=== PATIENT | male | born 1995 | race African-American/Black ===

== ENCOUNTER 2022-11-18 18:44 | Emergency (ER) | payer SELFPAY ==
[~2022-11-18] VITALS: Ht 195.6 cm; Wt 104.5 kg
[2022-11-18] MEDS ORDERED: SODIUM CHLORIDE 0.9% 1,000 ML IVB ONE (20:30)
[2022-11-18 21:26] LABS: Urine Bacteria NONE SEEN /hpf (None Seen); Urine Blood Negative /uL (Negative); Urine Specific Gravity 1.021 (1.001-1.035); Urine WBC 4 /hpf (0 - 3)
[2022-11-18 21:27] LABS: Basophils # (auto) 0 10 ^3/uL (0-0.2); Basophils % (auto) 0.6 % (0.0-2.0); Eosinophils # (auto) 0.1 10 ^3/uL (0-0.8); Eosinophils % (auto) 1.7 % (0.0-7.0); Hematocrit 48.6 % (41.0-53.0); Lymphocytes # (auto) 1.6 10 ^3/uL (0.4-5.4); Mean Corpuscular Hemoglobin 28.3 pg (28.0-32.0); Mean Corpuscular Hgb Conc. 32.8 g/dL (32.0-36.0); Mean Corpuscular Volume 86.3 fL (80.0-100.0); Monocytes # (auto) 0.6 10 ^3/uL (0-1.3); Monocytes % (auto) 7.7 % (0.0-12.0); Neutrophils # (auto) 5.1 10 ^3/uL (1.6-8.6); Nucleated Red Blood Cells % 0.1 %; Red Blood Cells 5.64 10^6/uL (4.5-5.90); Red Cell Distribution Width 13.4 % (11.8-14.3); White Blood Cell 7.5 10^3/uL (4.4-10.8)
[2022-11-18 21:42] LABS: Potassium 4.7 mmol/L (3.5-5.1)
[2022-11-18 21:48] LABS: Albumin 3.8 g/dL (3.4-5.0); BUN/Creatinine Ratio 12.8; Bilirubin, Total 0.6 mg/dL (0.2-1.0); Calcium 9.3 mg/dL (8.5-10.1); Magnesium 2.2 mg/dL (1.6-2.6); Total Protein 7.2 g/dL (6.4-8.2)
[2022-11-18] MEDS ORDERED: METR500T PO (22:42)
[2022-11-18] MEDS ORDERED: BISM262C44 PO (22:42)
[2022-11-19 00:15] VITALS: BP 128/72
== END 2022-11-19 00:40 | disposition home or self-care (01) ==
LOC: ER 18:47
DX: K52.9 Noninfective gastroenteritis and colitis, unspecified (principal)
CPT/HCPCS: 36415; 80053; 81001; 83690; 83735; 85025

== ENCOUNTER 2025-05-10 14:57 | Emergency (ER) | payer BC, MEDICAID ==
[~2025-05-10] VITALS: Ht 193 cm; Wt 95.4 kg
[~2025-05-10 14:57] MED LIST: BISM262C44 PO; METR500T PO
[2025-05-10] MEDS: KETOROLAC TROMETH 60MG/2ML VIAL IM ONE (16:00)
[2025-05-10 16:10] VITALS: BP 124/72; PULSE 88; RESP 16; TEMP 98.1; O2SAT 97
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
--- NOTE | 2025-05-10 16:42 | DVH ---
CLINICAL INDICATION: R/o fracture TECHNIQUE: left XY L KNEE 3V XRAY Comparison: None FINDINGS/IMPRESSION: : There is no evidence of acute fracture or dislocation. Soft tissues are unremarkable.
== END 2025-05-10 17:08 | disposition home or self-care (01) ==
LOC: ER 14:57
DX: M25.531 Pain in right wrist (principal); M25.532 Pain in left wrist; M25.562 Pain in left knee; F17.200 Nicotine dependence, unspecified, uncomplicated; F12.90 Cannabis use, unspecified, uncomplicated; Z79.899 Other long term (current) drug therapy; V19.9XXA Pedal cyclist (driver) (passenger) injured in unspecified traffic accident, initial encounter; Y93.I9 Activity, other involving external motion; Y92.89 Other specified places as the place of occurrence of the external cause; Y99.8 Other external cause status
CPT/HCPCS: 73562; 96372; 99283; J1885